=== PATIENT | female | born 1985 | race Caucasian/White ===

== ENCOUNTER 2019-05-19 14:05 | Outpatient (CLI) | payer OTHER ==
[~2019-05-19 14:05] MED LIST: ALLEGRA ALLERG180 MG PO; GILTUSS TR TAB1 EACH PO; MEDROL4 MG PO; ORPH100T PO; TOBREX5 ML OP; ZITHROMAX TRI-500 MG PO; ZYRTEC10 MG PO
== END 2019-05-19 14:18 | disposition home or self-care (01) ==
LOC: LAB 14:05
DX: D51.3 Other dietary vitamin B12 deficiency anemia (principal); N60.21 Fibroadenosis of right breast; J45.20 Mild intermittent asthma, uncomplicated; E55.9 Vitamin D deficiency, unspecified; J15.7 Pneumonia due to Mycoplasma pneumoniae; B96.0 Mycoplasma pneumoniae [M. pneumoniae] as the cause of diseases classified elsewhere

== ENCOUNTER 2023-06-21 12:38 | Emergency (ER) | payer OTHER ==
[~2023-06-21] VITALS: Ht 167.6 cm; Wt 134.7 kg
[2023-06-21] MEDS ORDERED: NORFLEX100MG PO (13:52)
== END 2023-06-21 14:11 | disposition home or self-care (01) ==
LOC: ER 12:38
DX: M54.9 Dorsalgia, unspecified (principal)

== ENCOUNTER 2025-04-26 10:22 | Emergency (ER) | payer OTHER ==
[~2025-04-26] VITALS: Ht 167.6 cm; Wt 82.1 kg
[~2025-04-26 10:22] MED LIST changes: +NORFLEX100MG PO
[2025-04-26] MEDS ORDERED: CLOBETASOL EMOL15 GM TOP (11:42)
[2025-04-26] MEDS ORDERED: METHYLPREDNISOLONE SOD SUCC 125 MG VIAL IM ONE (11:45)
[2025-04-26] MEDS ORDERED: DIPHENHYDRAMINE HCL 50 MG/ML VIAL 1ML IM ONE (11:45)
[2025-04-26] MEDS ORDERED: DIPHENHYDRAMINE HCL 50 MG/ML VIAL 1ML ONE (11:50)
[2025-04-26] MEDS ORDERED: WATER FOR INJ.,BACTERIOSTATIC 30 ML VIAL IJ ONE (11:50)
[2025-04-26] MEDS ORDERED: METHYLPREDNISOLONE SOD SUCC 125 MG VIAL ONE (11:50)
== END 2025-04-26 12:03 | disposition home or self-care (01) ==
LOC: ER 10:23
DX: L30.8 Other specified dermatitis (principal); Z88.8 Allergy status to other drugs, medicaments and biological substances
CPT/HCPCS: 96372; 99282; J1200